=== PATIENT | female | born 1950 | race African-American/Black ===

== ENCOUNTER 2022-03-02 12:40 | Inpatient (IN) | payer MEDICARE, MEDICAID ==
[~2022-03-02] VITALS: Ht 167.6 cm; Wt 115.3 kg
[2022-03-02] MEDS ORDERED: ACETAMINOPHEN 500MG TABLET PO ONE (13:00)
[2022-03-02 14:59] LABS: HEMATOCRIT. 42.6 % (36.0-48.0); HEMOGLOBIN. 13.9 g/dL (12.0-16.0); MEAN CORPUSCULAR HEMOGLOBIN 32.1 pg (28.0-32.0); MEAN CORPUSCULAR VOLUME 98.5 fL (81.0-99.0); MEAN PLATELET VOLUME 10.1 fl (7.4-10.4); PLATELET 173 x1000/uL (130-400); RED BLOOD CELL COUNT 4.33 mill/uL (4.2-5.4); RED CELL DISTRIBUTION WIDTH 14.2 % (11.6-14.6)
[2022-03-02 15:23] LABS: CHLORIDE 104 mEq/L (98-107)
[2022-03-02 15:27] LABS: ETHANOL BLOOD < 10 mg/dL
[2022-03-02] MEDS ORDERED: ONDANSETRON HCL 4MG/2ML INJ IV NR (16:30)
[2022-03-02] MEDS ORDERED: MORPHINE SULFATE 4 MG/ML CPJ (NOT FOR IM USE) IV NR (16:30)
[2022-03-02] MEDS ORDERED: ASPIRIN 325MG EC TABLET PO NR (16:30)
[2022-03-02 17:18] LABS: PLATELET ESTIMATE NORMAL
[2022-03-02] MEDS ORDERED: FUROSEMIDE 40MG/4ML VIAL IVP NR (17:45)
[2022-03-02] MEDS ORDERED: DEXAMETHASONE 10 MG/ML VIAL IV NR (17:45)
[2022-03-02] MEDS ORDERED: ALBUTEROL 6.7GM HFA INHALER ORI PRN (18:45)
[2022-03-02] MEDS ORDERED: GUAIFENESIN-DM 200MG-20MG/10ML UDC PO PRN (18:45)
[2022-03-02 19:57] VITALS: BP_SYST 102; BP_SYST 120; BP_DIAS 60
[2022-03-02 20:00] VITALS: BP 102/60
[2022-03-02] MEDS ORDERED: DOCUSATE SODIUM 100MG CAPSULE PO PRN (21:00)
[2022-03-02] MEDS ORDERED: CLONIDINE 0.1MG TABLET PO PRN (21:00)
[2022-03-02] MEDS ORDERED: IPRATROPIUM/ALBUTEROL 0.5-3(2.5)MG/3ML NEB HHN PRN (21:00)
[2022-03-02] MEDS ORDERED: GUAIFENESIN 200MG/10ML SUGAR FREE UDC PO PRN (21:00)
[2022-03-02] MEDS ORDERED: ONDANSETRON HCL 4MG/2ML INJ IV PRN (21:00)
[2022-03-02] MEDS ORDERED: HYDROCODONE/ACETAMINOPHEN 5/325MG TABLET PO PRN (21:00)
[2022-03-02] MEDS ORDERED: MAGNESIUM/ALUMINUM HYDROXIDE/SIMETHICONE 30ML UDC PO PRN (21:00)
[2022-03-02] MEDS ORDERED: ACETAMINOPHEN 325MG TABLET PO PRN ×2 (21:00)
[2022-03-02] MEDS ORDERED: HYDR-4135 PO (21:10)
[2022-03-02] MEDS ORDERED: PANT40TA51 PO (21:10)
[2022-03-02] MEDS ORDERED: FERR325T6 PO (21:10)
[2022-03-02] MEDS ORDERED: LEVO100T9 PO (21:10)
[2022-03-02] MEDS ORDERED: ATOR40TA70 PO (21:10)
[2022-03-02] MEDS ORDERED: LIOT5TAB11 PO (21:10)
[2022-03-02] MEDS ORDERED: MEMA5TAB42 PO (21:10)
[2022-03-02] MEDS ORDERED: ALLO100T PO (21:10)
[2022-03-02] MEDS ORDERED: COR3 PO (21:10)
[2022-03-02] MEDS ORDERED: PREG50CA PO (21:10)
[2022-03-02] MEDS ORDERED: NALOXONE HCL 0.4MG/ML VIAL IV PRN (21:15)
[2022-03-02 22:02] LABS: C REACTIVE PROTEIN QUANT 9.2 mg/L (0.0-3.0)
[2022-03-02] MEDS: HYDROCODONE/ACETAMINOPHEN 5/325MG TABLET PO PRN (22:31)
[2022-03-02] MEDS: ENOXAPARIN 40MG/0.4ML SYR SUBCUT SCH (22:32)
[2022-03-03] VITALS: BP 98/57
[2022-03-03 00:40] LABS: CREATINE KINASE MB FRACTION 2.3 ng/mL (0.5-3.6)
[2022-03-03] MEDS ORDERED: HYDR-4009 PO (01:00)
[2022-03-03 04:00] VITALS: BP 111/63
[2022-03-03] MEDS: HYDROCODONE/ACETAMINOPHEN 5/325MG TABLET PO PRN ×2 (06:15→12:26)
[2022-03-03 08:00] VITALS: BP 109/62
[2022-03-03 08:52] LABS: BASOPHILS % 0.5 % (0.0-2.0); HEMATOCRIT. 41.2 % (36.0-48.0); HEMOGLOBIN. 13.7 g/dL (12.0-16.0); LYMPHOCYTES % 19.7 % (20.0-50.0); MEAN CORPUSCULAR HEMOGLOBIN 32.4 pg (28.0-32.0); MEAN CORPUSCULAR VOLUME 97.7 fL (81.0-99.0); MEAN PLATELET VOLUME 9.4 fl (7.4-10.4); MONOCYTES % 13.9 % (2.0-8.0); NEUTROPHILS % 65.9 % (40.0-76.0); PLATELET 195 x1000/uL (130-400); RED BLOOD CELL COUNT 4.22 mill/uL (4.2-5.4); RED CELL DISTRIBUTION WIDTH 14.4 % (11.6-14.6)
[2022-03-03 08:58] LABS: CHLORIDE 102 mEq/L (98-107)
[2022-03-03] MEDS ORDERED: FUROSEMIDE 40MG/4ML VIAL IV SCH (09:00)
[2022-03-03] MEDS: DEXAMETHASONE 4MG/ML 1ML VIAL IV SCH (09:14)
[2022-03-03 09:16] LABS: CREATINE KINASE 609 IU/L (26-192); CREATINE KINASE MB FRACTION 3.1 ng/mL (0.5-3.6); HDL CHOLESTEROL 66 mg/dL (40-59); LDL CHOLESTEROL 72 mg/dL (5-100)
[2022-03-03] MEDS ORDERED: CEFTRIAXONE 1 G PREMIX 50 ML IV SCH (10:30)
[2022-03-03 12:00] VITALS: BP 129/82
[2022-03-03] MEDS: CEFTRIAXONE 1,000 MG in DEXTROSE 5% WATER 50 ML IV SCH (15:37)
[2022-03-03 16:00] VITALS: BP 100/59
[2022-03-03] MEDS: MORPHINE SULFATE 2 MG/ML CPJ (NOT FOR IM USE) IV PRN ×2 (16:45→21:23)
[2022-03-03] MEDS ORDERED: LOPERAMIDE HCL 2MG CAPSULE PO PRN (18:15)
[2022-03-03 20:00] VITALS: BP 104/59
[2022-03-03] MEDS: ENOXAPARIN 40MG/0.4ML SYR SUBCUT SCH (21:23)
[2022-03-04] VITALS: BP 100/43
[2022-03-04 04:00] VITALS: BP 100/60
[2022-03-04 08:00] VITALS: BP 118/71
[2022-03-04] MEDS: DEXAMETHASONE 4MG/ML 1ML VIAL IV SCH (08:46)
[2022-03-04] MEDS: MORPHINE SULFATE 2 MG/ML CPJ (NOT FOR IM USE) IV PRN ×2 (08:49→20:48)
[2022-03-04 10:41] LABS: HEMATOCRIT. 41.8 % (36.0-48.0); HEMOGLOBIN. 13.9 g/dL (12.0-16.0); MEAN CORPUSCULAR HEMOGLOBIN 32.3 pg (28.0-32.0); MEAN CORPUSCULAR VOLUME 97.3 fL (81.0-99.0); MEAN PLATELET VOLUME 9.5 fl (7.4-10.4); PLATELET 199 x1000/uL (130-400); RED CELL DISTRIBUTION WIDTH 14.3 % (11.6-14.6)
[2022-03-04 12:00] VITALS: BP 109/76
[2022-03-04] MEDS: CEFTRIAXONE 1,000 MG in DEXTROSE 5% WATER 50 ML IV SCH (12:44)
[2022-03-04 14:09] LABS: PLATELET ESTIMATE NORMAL
[2022-03-04] MEDS: HYDROCODONE/ACETAMINOPHEN 5/325MG TABLET PO PRN (15:03)
[2022-03-04 16:00] VITALS: BP 128/78
[2022-03-04 18:49] LABS: CLARITY URINE CLEAR (CLEAR); COLOR URINE YELLOW (YELLOW); KETONES URINE NEGATIVE (NEGATIVE); LEUKOCYTE ESTERASE URINE NEGATIVE (NEGATIVE); NITRITE URINE NEGATIVE (NEGATIVE); OCCULT BLOOD URINE NEGATIVE (NEGATIVE); PROTEIN URINE 2+ (NEGATIVE); SPECIFIC GRAVITY URINE 1.021 (1.005-1.030)
[2022-03-04 20:00] VITALS: BP 111/60
[2022-03-04] MEDS: ENOXAPARIN 40MG/0.4ML SYR SUBCUT SCH (20:48)
[2022-03-05] VITALS: BP 114/71
[2022-03-05] MEDS: HYDROCODONE/ACETAMINOPHEN 5/325MG TABLET PO PRN ×4 (03:55→18:59)
[2022-03-05 04:00] VITALS: BP 102/58
[2022-03-05 07:39] LABS: HEMATOCRIT. 39.5 % (36.0-48.0); MEAN CORPUSCULAR VOLUME 97.3 fL (81.0-99.0); MEAN PLATELET VOLUME 9.7 fl (7.4-10.4); PLATELET 183 x1000/uL (130-400); RED BLOOD CELL COUNT 4.06 mill/uL (4.2-5.4); RED CELL DISTRIBUTION WIDTH 13.9 % (11.6-14.6)
[2022-03-05 08:00] VITALS: BP 117/64
[2022-03-05] MEDS: CEFTRIAXONE 1,000 MG in DEXTROSE 5% WATER 50 ML IV SCH (11:36)
[2022-03-05] MEDS: MORPHINE SULFATE 2 MG/ML CPJ (NOT FOR IM USE) IV PRN (11:41)
[2022-03-05 12:00] VITALS: BP 124/71
[2022-03-05 16:00] VITALS: BP 120/68
[2022-03-05 20:00] VITALS: BP 102/60
[2022-03-05] MEDS: ENOXAPARIN 40MG/0.4ML SYR SUBCUT SCH (22:10)
[2022-03-06] VITALS: BP 109/73
[2022-03-06 04:00] VITALS: BP 121/58
[2022-03-06] MEDS: HYDROCODONE/ACETAMINOPHEN 5/325MG TABLET PO PRN ×2 (06:50→15:42)
[2022-03-06 07:35] LABS: PLATELET ESTIMATE NORMAL
[2022-03-06 08:00] VITALS: BP 115/63
[2022-03-06 10:15] LABS: HEMATOCRIT. 41.5 % (36.0-48.0); HEMOGLOBIN. 13.5 g/dL (12.0-16.0); MEAN CORPUSCULAR HEMOGLOBIN 31.9 pg (28.0-32.0); MEAN CORPUSCULAR VOLUME 98.2 fL (81.0-99.0); MEAN PLATELET VOLUME 9.7 fl (7.4-10.4); PLATELET 188 x1000/uL (130-400); RED BLOOD CELL COUNT 4.23 mill/uL (4.2-5.4); RED CELL DISTRIBUTION WIDTH 14.3 % (11.6-14.6)
[2022-03-06] MEDS: CEFTRIAXONE 1,000 MG in DEXTROSE 5% WATER 50 ML IV SCH (10:55)
[2022-03-06] MEDS: MORPHINE SULFATE 2 MG/ML CPJ (NOT FOR IM USE) IV PRN (10:56)
[2022-03-06] MEDS ORDERED: ENOXAPARIN 40MG/0.4ML SYR SUBCUT SCH (11:00)
[2022-03-06 11:18] LABS: PLATELET ESTIMATE NORMAL
[2022-03-06 12:00] VITALS: BP 116/66
[2022-03-06] MEDS ORDERED: AMOX1TAB15 MT (14:06)
[2022-03-06 15:25] VITALS: BP 116/66
[2022-03-06 15:42] VITALS: BP 116/66
== END 2022-03-06 16:10 | disposition home health service (06) | DRG 720 ==
LOC: ER 12:40 → 7EST 17:41 → ENRESERV 18:18
PROVIDERS: ADMIT Family Medicine Adult Medicine; ATTEND Family Medicine Adult Medicine
DX: A41.89 Other specified sepsis (principal); J96.01 Acute respiratory failure with hypoxia; J12.82 Pneumonia due to coronavirus disease 2019; U07.1 COVID-19; D63.1 Anemia in chronic kidney disease; I13.0 Hypertensive heart and chronic kidney disease with heart failure and stage 1 through stage 4 chronic kidney disease, or unspecified chronic kidney disease; I50.9 Heart failure, unspecified; N17.9 Acute kidney failure, unspecified; E87.1 Hypo-osmolality and hyponatremia; D72.819 Decreased white blood cell count, unspecified; D72.825 Bandemia; E66.9 Obesity, unspecified; E78.5 Hyperlipidemia, unspecified; N18.9 Chronic kidney disease, unspecified; E03.9 Hypothyroidism, unspecified; F03.90 Unspecified dementia, unspecified severity, without behavioral disturbance, psychotic disturbance, mood disturbance, and anxiety; G62.9 Polyneuropathy, unspecified; K21.9 Gastro-esophageal reflux disease without esophagitis; M10.9 Gout, unspecified; I25.10 Atherosclerotic heart disease of native coronary artery without angina pectoris; Z68.41 Body mass index [BMI] 40.0-44.9, adult; Z79.890 Hormone replacement therapy; Z79.899 Other long term (current) drug therapy; B97.29 Other coronavirus as the cause of diseases classified elsewhere; Z28.310 Unvaccinated for COVID-19
CPT/HCPCS: 36415; 71045; 76770; 80048; 80053; 80061; 80320; 81003; 82550; 82553; 82728; 83615; 83880; 84145; 84443; 84484; 85025; 85379; 86140; 87426; 87804; 93005; 93970; 97162; 97166; 99285; C9803; J0696; J1100; J1650; J1940; J2270; J2405; J7060; G0480